=== PATIENT | female | born 1965 | race Caucasian/White ===

== ENCOUNTER → 2018-06-09 | Outpatient (CLI) | payer OTHER ==
[~2018-06-09] MED LIST: LOR5/325 PO
--- NOTE | 2018-06-11 14:16 | RADIOLOGY IMAGING REPORT ---
FACILITY: [facility] PATIENT NAME: JERRELL DANIEL : [id number] MR: [id number] V: [id number] EXAM DATE: [id number] ORDERING PHYSICIAN: NAVYA THOMPSON TECHNOLOGIST: Maylin Ch PROCEDURE:BILATERAL DIGITAL SCREENING MAMMOGRAM WITH CAD ASSISTED INTERPRETATION & 3D TOMOSYNTHESIS COMPARISON:Prior mammograms 10/12/14, 04/30/12. INDICATIONS:SCREENING FINDINGS: The breasts are heterogeneously dense which can obscure small masses. The parenchymal pattern has remained stable allowing for difference in mammographic technique & patient positioning. DIAGNOSTIC CATEGORY 1--NEGATIVE. RECOMMENDATIONS: ROUTINE MAMMOGRAM AND CLINICAL EVALUATION. IMPRESSION: BIRADS 1: Negative. No significant abnormality is seen. Dictated by: Treasure Matt M.D. on 06/11/2018 at 11:12 Transcribed by: YENIFER on 06/11/2018 at 14:11 Approved by: Treasure Matt M.D. on 06/11/2018 at 14:14 [facility]
== END ==
LOC: MAMO 00:59
PROVIDERS: ATTEND Physician Assistant
DX: Z12.31 Encounter for screening mammogram for malignant neoplasm of breast (principal)
CPT/HCPCS: 77063; 77067